=== PATIENT | female | born 1985 | race Caucasian/White ===

== ENCOUNTER 2016-12-06 08:21 | Day surgery (SDC) | payer MEDICARE ==
[2016-12-05 13:21] VITALS: BMI 26.9
[2016-12-06] MEDS ORDERED: Lidocaine 1% PF 5 ML VIAL ONE (09:41)
[2016-12-06 13:16] VITALS: BP 106/63; TEMP 98.6
--- NOTE | 2016-12-06 14:43 | ULT ---
THYROID ULTRASOUND: Date: 12/06/16 HISTORY: Dominant nodule in right thyroid lobe on recent CT. COMPARISON: None. FINDINGS: Thyroid isthmus measures 0.1 cm. Right thyroid lobe measures 1.8 x 4.7 x 2.1 cm. Left thyroid lobe measures 1.8 x 1.5 x 4.4 cm. With regard to the left thyroid lobe, there is mild heterogeneity. There is no evidence of a dominan t nodule. Calipers based on static images do not have a demonstrable nodule on real-time imaging. An echoic focus in left thyroid lobe is felt to represent a small incidental cystic lesion. There is a dominant solid or cystic nodule in the right thyroid lobe measuring 1.8 x 1.8 x 2.1 cm. T his nodule was deemed appropriate for fine needle aspiration. At total of four 25 gauge fine needle aspirations of a right thyroid lobe nodule performed. There we re no immediate postprocedure complications. TECHNIQUE: Consent obtained to perform an ultrasound guided fine needle aspiration of a right thyroid nodule. S kin was prepped and draped in the sterile fashion. 1% lidocaine, buffered with sodium bicarbonate, w as used for local anesthesia. Under ultrasound guidance, a total of four 25 gauge fine needle aspira tions were performed. The patient tolerated the procedure well. No immediate or postprocedure compli cation. IMPRESSION: Technically successful ultrasound guided fine needle aspiration. POS: [facility]
== END 2016-12-06 10:00 | disposition home or self-care (01) ==
LOC: ULT 08:21
PROVIDERS: ATTEND Otolaryngology Plastic Surgery within the Head & Neck
PROC: 0G9H3ZX Drainage of Right Thyroid Gland Lobe, Percutaneous Approach, Diagnostic (ICD-10-PCS; principal; 2016-12-06)
DX: E04.1 Nontoxic single thyroid nodule (principal); J45.909 Unspecified asthma, uncomplicated; E28.2 Polycystic ovarian syndrome; K21.9 Gastro-esophageal reflux disease without esophagitis; E66.9 Obesity, unspecified; Z68.27 Body mass index [BMI] 27.0-27.9, adult; Z88.8 Allergy status to other drugs, medicaments and biological substances; Z88.2 Allergy status to sulfonamides; Z88.1 Allergy status to other antibiotic agents
CPT/HCPCS: 10022; 76536; 76942; 88173; J2001

== ENCOUNTER 2017-03-18 11:08 | Outpatient (CLI) | payer OTHER | END 2017-03-18 11:09 | disposition home or self-care (01) | LOC: DTY/OP 11:08 | PROVIDERS: ATTEND Specialist | DX: Z01.818 Encounter for other preprocedural examination (principal); E66.01 Morbid (severe) obesity due to excess calories | CPT/HCPCS: 97802 ==

== ENCOUNTER 2017-05-23 10:00 | Inpatient (IN) | payer MEDICARE ==
[2017-05-23 10:37] VITALS: BMI 38.5
[2017-05-29] MEDS ORDERED: Bupivacaine/Epinephrine 0.25% 30 ML VIAL ONE (06:44)
[2017-05-29] MEDS ORDERED: cefOXitin 2 GM, Syringe 1 ML in Sterile Water 10 ML SLOW IVP SCH (06:45)
[2017-05-29] MEDS ORDERED: Heparin 5,000 UNITS/ML VIAL ONE (06:53)
[2017-05-29] MEDS ORDERED: Scopolamine 1.5 mg/72 hour Patch ONE (06:53)
[2017-05-29] MEDS ORDERED: Ketorolac Tromethamine 30 MG/ML VIAL ONE (06:53)
[2017-05-29] MEDS ORDERED: Midazolam HCl 2 mg/2 ml Vial ONE ×2 (06:54→07:08)
[2017-05-29] MEDS ORDERED: Fentanyl 100 MCG/2 ML VIAL ONE ×3 (06:54→10:25)
[2017-05-29] MEDS ORDERED: Ondansetron HCl/PF 4 MG/2 ML Vial ONE ×2 (06:55→16:44)
[2017-05-29] MEDS ORDERED: HYDROmorphone 0.5 MG/0.5 ML SYRINGE ONE (09:28)
[2017-05-29] MEDS ORDERED: Promethazine HCl 25 MG/ML VIAL IM PRN ×2 (09:32→11:03)
[2017-05-29] MEDS ORDERED: Ondansetron HCl/PF 4 MG/2 ML Vial IVP PRN ×2 (09:32→11:03)
[2017-05-29] MEDS ORDERED: Promethazine HCl 25 MG/ML VIAL SLOW IVP PRN (09:32)
[2017-05-29] MEDS ORDERED: Promethazine HCl 25 MG/ML VIAL ONE (10:51)
[2017-05-29] MEDS ORDERED: D5 1/2 NS w/20 mEq KCL 1,000 ML ONE (10:58)
[2017-05-29] MEDS ORDERED: hydrALAZINE 20 MG/ML VIAL SLOW IVP PRN (11:03)
[2017-05-29] MEDS ORDERED: Dextrose 50% Abboject 50 ML SYRINGE SLOW IVP PRN (11:03)
[2017-05-29] MEDS ORDERED: Hydrocodone-Acetamin 15 ML UDCUP PO PRN (11:03)
[2017-05-29] MEDS ORDERED: Dextrose 5% in Water 1,000 ML IV PRN (11:03)
[2017-05-29] MEDS ORDERED: diphenhydrAMINE 50 MG/ML VIAL IVP PRN (11:03)
[2017-05-29] MEDS ORDERED: Pantoprazole 40 MG VIAL IVP SCH (11:30)
[2017-05-29] MEDS: Ketorolac Tromethamine 30 MG/ML VIAL IVP SCH ×3 (12:24→23:10)
[2017-05-29] MEDS: Morphine 4 MG/ML VIAL SLOW IVP PRN ×5 (12:27→23:09)
[2017-05-29] MEDS: D5 1/2 NS w/20 mEq KCL 1,000 ML IV SCH ×2 (14:33→17:56)
[2017-05-29] MEDS ORDERED: Glycopyrrolate 0.2 MG/ML 5 ML SYRINGE ONE (16:44)
[2017-05-29] MEDS ORDERED: PROPOFOL 200 MG/20 ML VIAL ONE (16:44)
[2017-05-29] MEDS ORDERED: Lidocaine 1% PF 5 ML VIAL ONE (16:44)
[2017-05-29] MEDS ORDERED: Succinylcholine Chloride 20 MG/ML 10 ml SYRINGE FS ONE (16:44)
[2017-05-29] MEDS ORDERED: Enoxaparin Sodium 40 MG/0.4 ML SYRINGE SC SCH (21:00)
[2017-05-30] MEDS: D5 1/2 NS w/20 mEq KCL 1,000 ML IV SCH (03:00)
[2017-05-30] MEDS: Morphine 4 MG/ML VIAL SLOW IVP PRN (04:41)
[2017-05-30] MEDS: Ketorolac Tromethamine 30 MG/ML VIAL IVP SCH ×2 (05:25→12:13)
[2017-05-30 05:34] LABS: #Lymphocytes 1.5 thou/uL (1.20-3.40); #Monocytes 0.7 thou/uL (0.11-0.59); #Neutrophils 7.3 thou/uL (1.40-6.50); %Basophils 0.3 % (0.0-1.0); %Eosinophils 0.2 % (0.0-10.0); %Monocytes 7.5 % (0.0-10.0); %Neutrophils 75.9 % (42.0-75.0); Hemoglobin 11.1 g/dL (12.0-16.0); Mean Corpuscular HGB CONC 33.6 g/dL (32.0-36.0); Mean Corpuscular Hemoglobin 30.6 pg (27.0-31.0); Mean Platelet Volume 8.3 fL (7.4-10.4); Platelet Count 218 thou/uL (130-400); RBC Distribution Width 12.4 % (11.5-14.5); Red Blood Cell (RBC) Count 3.64 mill/uL (4.20-5.40); White Blood Cell (WBC) Count 9.6 thou/uL (4.8-10.8)
[2017-05-30 05:41] LABS: Anion Gap 7 mmol/L (10-20); BUN (Urea Nitrogen) 5 mg/dL (7.0-18.7); Calc. Creatinine Clearance 186 mL/min (70-130); Calcium 8.5 mg/dL (7.8-10.44); Carbon Dioxide 28 mmol/L (22-29); Chloride 106 mmol/L (98-107); Estimated GFR-MDRD Greater than 90; Glucose 129 mg/dL (70-105); Potassium 4.1 mmol/L (3.5-5.1); Sodium 137 mmol/L (136-145)
[2017-05-30] MEDS ORDERED: Pantoprazole 40 MG VIAL IVP SCH (09:00)
[2017-05-30 12:24] VITALS: BP 99/66; TEMP 98.2
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
== END 2017-05-30 13:15 | disposition home or self-care (01) | DRG 621 ==
LOC: SURG A 05-29 06:00 → SURG B 05-29 07:16
PROVIDERS: ADMIT Specialist; ATTEND Specialist
PROC: 0D164ZL Bypass Stomach to Transverse Colon, Percutaneous Endoscopic Approach (ICD-10-PCS; principal; 2017-05-29)
DX: E66.01 Morbid (severe) obesity due to excess calories (principal); E11.9 Type 2 diabetes mellitus without complications; Z68.41 Body mass index [BMI] 40.0-44.9, adult; K21.9 Gastro-esophageal reflux disease without esophagitis; Z87.820 Personal history of traumatic brain injury; Z79.84 Long term (current) use of oral hypoglycemic drugs
CPT/HCPCS: 36415; 80048; 85025; A4216; C9113; J0131; J0694; J1170; J1644; J1650; J1885; J2001; J2250; J2270; J2405; J2550; J2704; J3010

== ENCOUNTER 2017-05-23 10:10 | Outpatient (CLI) | payer MEDICARE ==
[2017-05-23 11:48] LABS: BHCG - Serum Negative (NEGATIVE); Pregs Control Background? CLEAR/WHITE (CLR/WHITE); Pregs Control Bar Appear? YES (CONTROL BAR)
== END 2017-05-23 10:11 | disposition home or self-care (01) ==
LOC: LABBT 10:10
PROVIDERS: ATTEND Specialist
DX: Z01.818 Encounter for other preprocedural examination (principal); E66.01 Morbid (severe) obesity due to excess calories; Z68.41 Body mass index [BMI] 40.0-44.9, adult
CPT/HCPCS: 84703

== ENCOUNTER 2017-06-02 09:06 | Inpatient (IN) | payer MEDICARE ==
[2017-06-02] MEDS ORDERED: Sodium Chloride 0.9% 100 ML ONE (09:35)
[2017-06-02] MEDS ORDERED: Piperacillin/Tazobactam 4.5 GM VIAL ONE (09:35)
[2017-06-02 09:47] LABS: #Lymphocytes 0.7 thou/uL (1.20-3.40); #Monocytes 0.3 thou/uL (0.11-0.59); %Basophils 0.1 % (0.0-1.0); %Eosinophils 0.2 % (0.0-10.0); %Lymphocytes 7.5 % (21.0-51.0); %Monocytes 3.8 % (0.0-10.0); %Neutrophils 88.5 % (42.0-75.0); Hemoglobin 12.5 g/dL (12.0-16.0); Mean Corpuscular HGB CONC 35.4 g/dL (32.0-36.0); Mean Corpuscular Hemoglobin 31.4 pg (27.0-31.0); Mean Corpuscular Volume 88.6 fl (81.0-99.0); Mean Platelet Volume 7.7 fL (7.4-10.4); Platelet Count 299 thou/uL (130-400); RBC Distribution Width 11.7 % (11.5-14.5); Red Blood Cell (RBC) Count 3.97 mill/uL (4.20-5.40)
[2017-06-02 10:12] LABS: ALT (SGPT) 82 U/L (8-55); AST (SGOT) 23 U/L (5-34); Albumin 4.1 g/dL (3.5-5.0); Alkaline Phosphatase 51 U/L (40-150); Anion Gap 15 mmol/L (10-20); BUN (Urea Nitrogen) 10 mg/dL (7.0-18.7); Bilirubin, Total 0.6 mg/dL (0.2-1.2); Calc. Creatinine Clearance 0 mL/min (70-130); Calcium 9.4 mg/dL (7.8-10.44); Carbon Dioxide 23 mmol/L (22-29); Chloride 101 mmol/L (98-107); Estimated GFR-MDRD Greater than 90; Globulin 3.3 g/dL (2.4-3.5); Glucose 114 mg/dL (70-105); Lipase 66 U/L (8-78); Potassium 3.3 mmol/L (3.5-5.1); Protein, Total 7.4 g/dL (6.0-8.3); Sodium 136 mmol/L (136-145)
--- NOTE | 2017-06-02 10:23 | RAD ---
PA AND LATERAL VIEWS CHEST: Date: 06/02/17 HISTORY: Cough and fever. Patient had bypass on 05/29/17. FINDINGS: The heart size is normal. There is a mild infiltrate in the left inferior lower lobe. No pneumothorac es are seen. A tiny left pleural effusion may be present. IMPRESSION: Possibility of left lower lobe pneumonia should be considered. POS: C
[2017-06-02 10:33] LABS: Bilirubin Small (Negative); Blood, Urine Negative (Negative); Clarity CLOUDY (Clear); Glucose, Urine (Dipstick) Negative (Negative); Leukocyte Negative (Negative); Nitrite Negative (Negative); Protein, Urine (Dipstick) Negative (Neg-Trace); Specific Gravity, Urine 1.021 (1.002-1.036); pH, Urine 5.5 (5.0-9.0)
[2017-06-02 10:35] LABS: Pregnancy Test - Urine (BHCG) Negative (Negative); Pregu Control Background? CLEAR/WHITE (CLR/WHITE); Pregu Control Bar Appear? YES (CONTROL BAR); Specific Gravity 1.021 (1.002-1.036)
[2017-06-02] MEDS ORDERED: Acetaminophen 1,000 MG in Premix Bag 1 BAG IVPB SCH (10:45)
--- NOTE | 2017-06-02 12:44 | CT ---
CT ABDOMEN AND PELVIS WITH IV CONTRAST: DATE: 06/02/17. HISTORY: Postoperative fever secondary to bariatric surgery. COMPARISON: None available. FINDINGS: There are postsurgical changes related to gastric bypass procedure. There is no extravasation of con trast seen at the gastroenteric anastomosis. No free intraperitoneal gas is visualized. No fluid co llection is seen to suggest an abscess. There are patchy airspace opacities at each lung base which may be related to atelectasis, although t here is a question of additional reticulonodular densities at the right lung base, and findings could be related to pneumonitis at each lung base. There is a tiny left pleural effusion present. While precontrast images were not obtained, there does appear to be mild diminished attenuation of th e liver relative to the spleen which is suggestive of fatty infiltration. The liver is otherwise nor mal in appearance. The spleen, pancreas, bilateral adrenal glands, kidneys, urinary bladder, uterus, and adnexal structu res have a normal CT appearance. There is a small amount of free fluid in the pelvis. The opacified proximal small bowel is normal in appearance. The remainder of the small bowel is also normal in caliber. The appendix is visualized and normal in caliber. Abdominal aorta is normal in appearance. Osseous structures are intact. IMPRESSION: 1. Tiny left pleural effusion with bibasilar ill-defined airspace opacities which may be attributabl e to atelectasis, but pneumonitis is a possibility. 2. Postsurgical changes related to gastric bypass procedure. There is no extravasation of contrast, and no free intraperitoneal gas or fluid collection is seen adjacent to the region of postsurgical c hange. 3. No evidence of a bowel obstruction. 4. Small amount of free fluid in the pelvis including the right paracolic gutter. 5. Mild fatty infiltration of the liver. 6. No CT evidence of appendicitis. POS: [facility]
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
[2017-06-02] MEDS ORDERED: Iopamidol 370 76% 50 ML VIAL FS ONE (14:34)
[2017-06-02] MEDS ORDERED: ISOVUE-370 76%-LOCM 1 ML ONE (14:34)
[2017-06-02] MEDS ORDERED: Morphine 4 MG/ML VIAL SLOW IVP PRN (15:00)
[2017-06-02] MEDS ORDERED: Ondansetron ODT 4 MG TAB PO PRN (15:00)
[2017-06-02] MEDS ORDERED: Dextrose 50% Abboject 50 ML SYRINGE SLOW IVP PRN (15:00)
[2017-06-02] MEDS ORDERED: Dextrose 5% in Water 1,000 ML IV PRN (15:00)
[2017-06-02] MEDS ORDERED: Polyethylene Glycol 3350 17 GM Packet PO SCH (15:15)
[2017-06-02] MEDS: D5 1/2 NS w/20 mEq KCL 1,000 ML IV SCH (16:04)
[2017-06-02 16:21] VITALS: BMI 37.5
[2017-06-02] MEDS: Fleet Enema 133 ML BOT PR SCH ×2 (17:03→21:58)
[2017-06-02] MEDS: Acetaminophen 1,000 MG in Premix Bag 1 BAG IVPB SCH ×2 (17:39→23:32)
[2017-06-02] MEDS: Ketorolac Tromethamine 30 MG/ML VIAL IVP SCH ×2 (17:39→23:32)
[2017-06-02] MEDS: Piperacillin/Tazobactam 3.375 GM in Sodium Chloride 0.9% 100 ML IVPB SCH ×2 (17:39→23:36)
[2017-06-02] MEDS ORDERED: Enoxaparin Sodium 40 MG/0.4 ML SYRINGE SC SCH (21:00)
[2017-06-02] MEDS: Famotidine 20 MG TAB PO SCH (21:58)
[2017-06-03] MEDS: Ketorolac Tromethamine 30 MG/ML VIAL IVP SCH (05:00)
[2017-06-03] MEDS: Acetaminophen 1,000 MG in Premix Bag 1 BAG IVPB SCH (05:02)
[2017-06-03] MEDS: D5 1/2 NS w/20 mEq KCL 1,000 ML IV SCH (05:06)
[2017-06-03] MEDS: Piperacillin/Tazobactam 3.375 GM in Sodium Chloride 0.9% 100 ML IVPB SCH (05:06)
[2017-06-03 05:35] LABS: #Eosinphils 0.1 thou/uL (0.0-0.7); #Lymphocytes 1.4 thou/uL (1.20-3.40); #Monocytes 0.4 thou/uL (0.11-0.59); #Neutrophils 4.7 thou/uL (1.40-6.50); %Basophils 0.3 % (0.0-1.0); %Eosinophils 2.1 % (0.0-10.0); %Lymphocytes 20.7 % (21.0-51.0); %Monocytes 6.6 % (0.0-10.0); %Neutrophils 70.3 % (42.0-75.0); Hemoglobin 10.2 g/dL (12.0-16.0); Mean Corpuscular HGB CONC 33.7 g/dL (32.0-36.0); Mean Corpuscular Hemoglobin 30.3 pg (27.0-31.0); Mean Corpuscular Volume 89.8 fl (81.0-99.0); Platelet Count 245 thou/uL (130-400); RBC Distribution Width 11.7 % (11.5-14.5); Red Blood Cell (RBC) Count 3.38 mill/uL (4.20-5.40); White Blood Cell (WBC) Count 6.7 thou/uL (4.8-10.8)
[2017-06-03 05:46] LABS: Anion Gap 10 mmol/L (10-20); BUN (Urea Nitrogen) 7 mg/dL (7.0-18.7); Calc. Creatinine Clearance 201 mL/min (70-130); Calcium 8.4 mg/dL (7.8-10.44); Carbon Dioxide 25 mmol/L (22-29); Chloride 107 mmol/L (98-107); Estimated GFR-MDRD Greater than 90; Glucose 100 mg/dL (70-105); Potassium 3.3 mmol/L (3.5-5.1); Sodium 139 mmol/L (136-145)
[2017-06-03 08:21] VITALS: BP 98/62; TEMP 97.9
[2017-06-03] MEDS: Famotidine 20 MG TAB PO SCH (08:39)
[2017-06-03] MEDS ORDERED: Polyethylene Glycol 3350 17 GM Packet PO SCH (09:00)
--- NOTE | 2017-06-03 11:06 | DPRG ---
DATE OF SERVICE: 06/03/2017 HISTORY: This is hospital day #2. Ms. Latham was admitted yesterday with a high fever and tachyca rdia. CT scan showed no evidence of intra-abdominal problem or leak. I suspected a pulmonary etiolo gy. She was admitted to the hospital and narcotics were avoided. She was given an enema and MiraLax and she had resumption of bowel function. She has had no nausea or vomiting since admission. She h as been afebrile since admission. She notes today that she has zero pain. She has been ambulating and tolerating her clear liquid diet uneventfully. PHYSICAL EXAMINATION: LUNGS: Her lungs are clear to auscultation. She has a good cough. ABDOMEN: Soft and nontender. Incisions are nicely healed. She has good bowel sounds. LABORATORY STUDIES: Her metabolic panel and CBC are essentially normal with normal white count, no e vidence of left shift. ASSESSMENT AND PLAN: The patient with resolved fever and tachycardia. I suspect that this was relat ed to atelectasis. It was associated with bowel distention secondary to some degree of ileus related to narcotic use. All these problems seemed to have resolved and she feels well today. I believe melina whittaker is stable for discharge home on her liquid diet. She is instructed to avoid narcotics. I will see her next week for her usual followup visit 2 weeks out from surgery.
== END 2017-06-03 11:19 | disposition home or self-care (01) | DRG 389 ==
LOC: ERS 09:06 → SURG A 15:06
PROVIDERS: ADMIT Specialist; ATTEND Specialist
DX: K56.7 Ileus, unspecified (principal); J98.11 Atelectasis; E66.9 Obesity, unspecified; R50.9 Fever, unspecified; Z98.84 Bariatric surgery status; K21.9 Gastro-esophageal reflux disease without esophagitis; Z68.37 Body mass index [BMI] 37.0-37.9, adult; Z87.820 Personal history of traumatic brain injury; Z88.2 Allergy status to sulfonamides; T40.605A Adverse effect of unspecified narcotics, initial encounter
CPT/HCPCS: 36415; 71046; 74177; 80048; 80053; 81003; 81025; 83605; 83690; 85025; 87040; 87086; 93005; 96361; 96365; 96367; J0131; J1650; J1885; J2543; J3411; J7050

== ENCOUNTER 2018-03-28 18:58 | Emergency (ER) | payer MEDICARE ==
[2018-03-28 19:39] LABS: Bilirubin Negative (Negative); Blood, Urine Negative (Negative); Clarity CLEAR (Clear); Glucose, Urine (Dipstick) Negative (Negative); Leukocyte Large (Negative); Nitrite Negative (Negative); Protein, Urine (Dipstick) Negative (Neg-Trace); Specific Gravity, Urine 1.017 (1.002-1.036)
[2018-03-28 19:41] LABS: Bacteria/HPF None Seen HPF (None Seen); Hyaline Casts/LPF 0-3 HYALINE CAST LPF (0-3 Hyaline); Pregnancy Test - Urine (BHCG) Negative (Negative); Pregu Control Background? CLEAR/WHITE (CLR/WHITE); Pregu Control Bar Appear? YES (CONTROL BAR); Specific Gravity 1.017 (1.002-1.036); Squamous Epithelial 0-3 HPF (0-3)
[2018-03-28 19:42] LABS: RBC/HPF None Seen HPF (0-3)
[2018-03-28 19:53] LABS: #Basophils 0.1 thou/uL (0.0-0.2); #Eosinphils 0.1 thou/uL (0.0-0.7); #Lymphocytes 2.9 thou/uL (1.20-3.40); #Monocytes 0.3 thou/uL (0.11-0.59); #Neutrophils 4.1 thou/uL (1.40-6.50); %Basophils 1.5 % (0.0-1.0); %Eosinophils 1.5 % (0.0-10.0); %Lymphocytes 38.4 % (21.0-51.0); %Monocytes 4.5 % (0.0-10.0); %Neutrophils 54.1 % (42.0-75.0); Hemoglobin 12.9 g/dL (12.0-16.0); Mean Corpuscular HGB CONC 33.8 g/dL (32.0-36.0); Mean Corpuscular Hemoglobin 31.5 pg (27.0-31.0); Mean Corpuscular Volume 93.3 fL (78.0-98.0); Mean Platelet Volume 7.5 fL (7.4-10.4); Platelet Count 257 thou/uL (130-400); RBC Distribution Width 11.7 % (11.5-14.5); Red Blood Cell (RBC) Count 4.09 mill/uL (4.20-5.40); White Blood Cell (WBC) Count 7.5 thou/uL (4.8-10.8)
[2018-03-28 20:14] LABS: ALT (SGPT) 33 U/L (8-55); AST (SGOT) 24 U/L (5-34); Albumin 4.4 g/dL (3.5-5.0); Alkaline Phosphatase 53 U/L (40-150); Anion Gap 12 mmol/L (10-20); BUN (Urea Nitrogen) 11 mg/dL (7.0-18.7); Bilirubin, Total 0.3 mg/dL (0.2-1.2); Calc. Creatinine Clearance 0 mL/min (70-130); Calcium 9.6 mg/dL (7.8-10.44); Carbon Dioxide 28 mmol/L (22-29); Chloride 103 mmol/L (98-107); Estimated GFR-MDRD Greater than 90; Glucose 118 mg/dL (70-105); Potassium 3.8 mmol/L (3.5-5.1); Protein, Total 7.4 g/dL (6.0-8.3); Sodium 139 mmol/L (136-145)
== END 2018-03-28 21:19 | disposition home or self-care (01) ==
LOC: ERS 18:58
DX: N30.00 Acute cystitis without hematuria (principal)
CPT/HCPCS: 36415; 80053; 81003; 81015; 81025; 83690; 85025; 99284

== ENCOUNTER 2018-07-17 19:37 | Emergency (ER) | payer MEDICARE, MEDICAID ==
[2018-07-17 22:06] LABS: Bilirubin Negative (Negative); Blood, Urine Negative (Negative); Clarity CLEAR (Clear); Glucose, Urine (Dipstick) Negative (Negative); Leukocyte Trace (Negative); Nitrite Negative (Negative); Protein, Urine (Dipstick) Negative (Neg-Trace); Urobilinogen 0.2 mg/dL (0.2-1.0)
[2018-07-17 22:09] LABS: Pregnancy Test - Urine (BHCG) POSITIVE (Negative); Pregu Control Background? CLEAR/WHITE (CLR/WHITE); Pregu Control Bar Appear? YES (CONTROL BAR)
[2018-07-17 22:12] LABS: Bacteria/HPF None Seen HPF (None Seen); Hyaline Casts/LPF 0-3 HYALINE CAST LPF (0-3 Hyaline); Pathc Cast-AUWi Flag 0.13 (0-2.49); RBC/HPF 0-3 HPF (0-3); Squamous Epithelial 0-3 HPF (0-3); WBC/HPF 0-3 HPF (0-3)
[2018-07-19 23:18] LABS: Chlamydia by PCR Not Detected (NotDetected); GC by PCR Not Detected (NotDetected)
== END 2018-07-17 23:40 | disposition home or self-care (01) ==
LOC: ERS 19:37
DX: O99.89 Other specified diseases and conditions complicating pregnancy, childbirth and the puerperium (principal); L29.9 Pruritus, unspecified; Z3A.19 19 weeks gestation of pregnancy
CPT/HCPCS: 81003; 81015; 81025; 87480; 87491; 87510; 87591; 87660

== ENCOUNTER 2018-08-04 19:24 | Day surgery (SDC) | payer MEDICARE, MEDICAID ==
[2018-08-04 20:11] VITALS: BMI 26.3
[2018-08-04] MEDS ORDERED: hydrALAZINE 20 MG/ML VIAL SLOW IVP PRN (20:30)
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
== END 2018-08-04 20:40 | disposition home or self-care (01) ==
LOC: L&D/OP 19:24
PROVIDERS: ATTEND Obstetrics & Gynecology
DX: O36.8120 Decreased fetal movements, second trimester, not applicable or unspecified (principal); Z3A.21 21 weeks gestation of pregnancy; Z98.84 Bariatric surgery status; Z88.2 Allergy status to sulfonamides; Z88.1 Allergy status to other antibiotic agents; Z88.8 Allergy status to other drugs, medicaments and biological substances
CPT/HCPCS: 99282

== ENCOUNTER 2018-11-29 17:35 | Day surgery (SDC) | payer MEDICARE, MEDICAID ==
[2018-11-29 18:25] VITALS: BP 108/62; TEMP 98.1; BMI 29.0
[2018-11-29] MEDS ORDERED: hydrALAZINE 20 MG/ML VIAL SLOW IVP PRN (18:35)
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
[2018-11-29] MEDS ORDERED: FLU VACC QS2019-20(6MOS UP)/PF 60 MCG/0.5 ML SYRINGE IM ONE (20:00)
== END 2018-11-29 19:00 | disposition home or self-care (01) ==
LOC: L&D/OP 17:35
PROVIDERS: ATTEND Obstetrics & Gynecology
DX: O36.8130 Decreased fetal movements, third trimester, not applicable or unspecified (principal); O99.513 Diseases of the respiratory system complicating pregnancy, third trimester; J45.909 Unspecified asthma, uncomplicated; Z3A.38 38 weeks gestation of pregnancy; Z88.2 Allergy status to sulfonamides; Z88.8 Allergy status to other drugs, medicaments and biological substances

== ENCOUNTER 2018-12-07 16:22 | Inpatient (IN) | payer MEDICARE, MEDICAID ==
[2018-12-07] MEDS: Lactated Ringer's 1,000 ML IV SCH ×2 (17:00→19:36)
[2018-12-07] MEDS ORDERED: Ibuprofen 800 MG TAB PO PRN (17:13)
[2018-12-07] MEDS ORDERED: Zolpidem Tartrate 5 MG TAB PO PRN (17:13)
[2018-12-07] MEDS ORDERED: Docusate 100 MG CAP PO PRN (17:13)
[2018-12-07] MEDS ORDERED: hydrALAZINE 20 MG/ML VIAL SLOW IVP PRN ×2 (17:13→23:00)
[2018-12-07] MEDS ORDERED: Lidocaine 1% (PF) 30 ML VIAL SC PRN (17:13)
[2018-12-07] MEDS ORDERED: Butorphanol Tartrate 1 MG/ML VIAL SLOW IVP PRN (17:13)
[2018-12-07] MEDS ORDERED: Ondansetron PF 4 MG/2 ML Vial IVP PRN ×3 (17:13→23:00)
[2018-12-07] MEDS ORDERED: NS / Oxytocin 40 units/1000ml 1,000 ML IV PRN (17:13)
[2018-12-07] MEDS ORDERED: HYDROcodone/Acetaminophen 5/325 mg Tablet PO PRN ×2 (17:13)
[2018-12-07] MEDS ORDERED: Promethazine HCl 25 MG/ML VIAL IM PRN ×2 (17:13→19:37)
[2018-12-07] MEDS ORDERED: NS w/ Oxytocin 10 units 500 ML IV SCH (17:15)
[2018-12-07 17:19] VITALS: BMI 29.2
[2018-12-07 17:35] LABS: Hemoglobin 10.6 g/dL (12.0-16.0); Mean Corpuscular HGB CONC 33.2 g/dL (32.0-36.0); Mean Corpuscular Hemoglobin 29.8 pg (27.0-31.0); Mean Corpuscular Volume 89.9 fL (78.0-98.0); Mean Platelet Volume 7.3 fL (7.4-10.4); Platelet Count 270 thou/uL (130-400); RBC Distribution Width 12.8 % (11.5-14.5); Red Blood Cell (RBC) Count 3.56 mill/uL (4.20-5.40); White Blood Cell (WBC) Count 7.5 thou/uL (4.8-10.8)
[2018-12-07 18:12] LABS: HBSAg Index 0.14 S/CO (0-0.99); Hep B Surf Ag Non-Reactive S/CO (NonReactive); Syphilis Antibody Nonreactive (Nonreactive); Syphilis Antibody Index 0.05 S/CO (<1.00 Non-Reactive)
[2018-12-07] MEDS ORDERED: Fentanyl 4 mcg/Bup 0.1% Cadd 100 ML ONE (19:08)
[2018-12-07] MEDS ORDERED: ePHEDrine/0.9% NaCl/PF SYRINGE 50 mg/10 ml SLOW IVP PRN (19:37)
[2018-12-07] MEDS ORDERED: Naloxone HCl 0.4 mg/ml Vial IVP PRN ×2 (19:37)
[2018-12-07] MEDS ORDERED: diphenhydrAMINE 50 MG/ML VIAL IVP PRN (19:37)
[2018-12-07] MEDS ORDERED: Lactated Ringer's 500 ML IV PRN (19:37)
[2018-12-07] MEDS ORDERED: Acetaminophen 325 MG TAB PO PRN (19:37)
[2018-12-07] MEDS ORDERED: Fentanyl 4 mcg/Bupivacaine 0.1% Cassette 100 ML EPIDURAL SCH (19:45)
[2018-12-07] MEDS ORDERED: Communication Order-Pharmacy FS SCH (19:45)
[2018-12-07] MEDS ORDERED: Lidocaine 1% (PF) 30 ML VIAL ONE (20:48)
[2018-12-07] MEDS ORDERED: NS / Oxytocin 40 units/1000ml 1,000 ML ONE (20:48)
[2018-12-07] MEDS: NS / Oxytocin 40 units/1000ml 1,000 ML IV SCH (22:21)
[2018-12-07] MEDS ORDERED: Milk Of Magnesia 30 ML UDCUP PO PRN (23:00)
[2018-12-07] MEDS ORDERED: Bisacodyl 10 MG SUPP PR PRN (23:00)
[2018-12-07] MEDS ORDERED: Lanolin Ointment 7 GM TUBE TOP PRN (23:00)
[2018-12-07] MEDS ORDERED: Preparation H Ointment 28 GM TUBE PR PRN (23:00)
[2018-12-07] MEDS ORDERED: Benzocaine-Menthol 82.5 ML CAN TOP PRN (23:00)
[2018-12-08] MEDS: NS / Oxytocin 40 units/1000ml 1,000 ML IV SCH (02:05)
[2018-12-08] MEDS: HYDROcodone/Acetaminophen 5/325 mg Tablet PO PRN ×4 (03:12→22:46)
[2018-12-08] MEDS: Ibuprofen 800 MG TAB PO SCH ×3 (05:04→21:35)
[2018-12-08] MEDS ORDERED: Adacel (T-DAP) 0.5 ML SYRINGE IM ONE (09:00)
[2018-12-08] MEDS: Prenatal Vitamin 1 TAB PO SCH (09:13)
[2018-12-08] MEDS: Docusate Calcium (SURFAK) 240 MG CAP PO SCH ×2 (09:13→21:35)
[2018-12-08] MEDS: Ferrous Sulfate 325 MG TAB PO SCH ×2 (09:13→17:45)
[2018-12-08] MEDS: Lactated Ringer's 1,000 ML IV SCH ×2 (11:33→18:53)
[2018-12-09] MEDS: Lactated Ringer's 1,000 ML IV SCH ×2 (03:17→10:20)
[2018-12-09] MEDS: Ibuprofen 800 MG TAB PO SCH ×2 (06:14→14:48)
[2018-12-09] MEDS: Docusate Calcium (SURFAK) 240 MG CAP PO SCH (09:41)
[2018-12-09] MEDS: Ferrous Sulfate 325 MG TAB PO SCH (10:19)
[2018-12-09] MEDS: Prenatal Vitamin 1 TAB PO SCH (10:20)
[2018-12-09] MEDS: HYDROcodone/Acetaminophen 5/325 mg Tablet PO PRN (13:19)
[2018-12-09 17:42] VITALS: BP 115/68; TEMP 98.8
--- NOTE | 2018-12-09 22:36 | DN ---
DATE OF PROCEDURE: 12/07/2018 PREOPERATIVE DIAGNOSES: 1. A 33-year-old G3, P2, with a history of a previous section, in active labor. 2. Group B Streptococcus negative. 3. Artificial rupture of membranes for clear fluid. 4. History of gastric bypass with subsequent anemia of due to malabsorption. 5. Depression and anxiety. POSTOPERATIVE DIAGNOSES: 1. A 33-year-old G3, P2, with a history of a previous section, in active labor. 2. Group B Streptococcus negative. 3. Artificial rupture of membranes for clear fluid. 4. History of gastric bypass with subsequent anemia of due to malabsorption. 5. Depression and anxiety. 6. Live-born male infant with Apgars of 9 and 9 at 1 and 5 minutes respectively. 7. Nuchal cord in delivery reduced. 8. Non-reassuring heart tracing and asynclitic presentation at the perineum. PROCEDURE PERFORMED: Vacuum-assisted vaginal delivery. QUANTITATIVE BLOOD LOSS: 100 mL. CLINICAL HISTORY: This patient is a 33-year-old female, who presented to her routine OB appointment and was noted to be in active labor. She was 4 cm, and 80% effaced and feeling pressure. She was sent to Labor and Delivery and placed on the monitors and had a category 1 tracing. An amniotomy was performed for clear fluid. Shortly thereafter, she did request an epidural for maternal analgesia and was able to get adequate pain control. She progressed appropriately on the labor curve, and was complete and +1 station. By the early afternoon, the patient was able to push with good maternal effort; however the trajectory of the fetus delivering in the canal was toward the pubic bone rather than down to the base of the perineum. The patient employed several methods to push and was successful in getting the fetus under the pubic bone; however, the baby was starting to notice some swelling and some caput on the head and the tracing was reflecting compression of the cord as well as the not tolerating this trajectory. The risks, benefits, and possible complications as well as alternatives to vacuum-assisted delivery were discussed and the patient wished to proceed. DESCRIPTION OF PROCEDURE: The suction cup was placed over the presenting vertex after draining the bladder with a red rubber catheter. Only 25 mL of clear urine were obtained. After the cup was placed on the head of the fetus, the borders were swept to make sure that there was no other tissue maternal calix in the cup. The suction was turned to the green zone and with the next contraction, the mother was advised to push and the vertex was pulled in a downward manner. This allowed for further delivery of the head. With the second pull, the head delivered, followed by the anterior shoulder, then the posterior shoulder, then the remainder of the 's body. There was a nuchal cord that was noted and it was successfully reduced at the perineum prior to delivery of the remainder of the body. The infant was stimulated and cried spontaneously. The cord was doubly clamped and cut. There was some suction of the mouth and nose at the perineum. The infant was then placed onto the abdomen and then with continued stimulation and care there. The patient was explored and noted to have only a left labial laceration, which was not bleeding; however, was for cosmetic reasons, repaired, it was considered a first degree. The placenta was delivered spontaneously intact with a 3-vessel cord and fundus massaged, noted as a firm uterus. Exploration of the vagina, introitus, and the cervix revealed nothing more afterwards. The patient was allowed to recover on Labor and Delivery in satisfactory condition with her infant. Again, the was a live born male, weighing 7 pounds 6 ounces with Apgars of 9 and 9 at 1 and 5 minutes respectively. There were no other issues surrounding this delivery. All needle, sponge, lap, and instrument counts were correct x2 at the end of the procedure. Job ID: [id number]
== END 2018-12-09 18:30 | disposition home or self-care (01) | DRG 807 ==
LOC: L&D 16:22 → 3SE 12-08 03:03
PROVIDERS: ADMIT Obstetrics & Gynecology; ATTEND Obstetrics & Gynecology
PROC: 10D07Z6 Extraction of Products of Conception, Vacuum, Via Natural or Artificial Opening (ICD-10-PCS; principal; 2018-12-07)
PROC: 0HQ9XZZ Repair Perineum Skin, External Approach (ICD-10-PCS; 2018-12-07)
PROC: 10907ZC Drainage of Amniotic Fluid, Therapeutic from Products of Conception, Via Natural or Artificial Opening (ICD-10-PCS; 2018-12-07)
DX: O99.344 Other mental disorders complicating childbirth (principal); Z37.0 Single live birth; F32.9 Major depressive disorder, single episode, unspecified; F41.9 Anxiety disorder, unspecified; O76 Abnormality in fetal heart rate and rhythm complicating labor and delivery; O69.81X0 Labor and delivery complicated by cord around neck, without compression, not applicable or unspecified; O99.02 Anemia complicating childbirth; O70.0 First degree perineal laceration during delivery; Z3A.39 39 weeks gestation of pregnancy
CPT/HCPCS: 36415; 51702; 85027; 86780; 86850; 86900; 86901; 87340; J2001; J2590

== ENCOUNTER 2019-07-23 11:00 | Outpatient (CLI) | payer MEDICARE ==
--- NOTE | 2019-07-23 16:12 | ULT ---
THYROID ULTRASOUND: Comparison: 12-06-16 Technique: Multiplanar grayscale and color doppler images were obtained in a thyroid ultrasound. FINDINGS: There is a solid nodule again seen in the right lobe of the thyroid. This is the nodule for which yamila or biopsy was performed. This nodule was circumscribed and isoechoic to the back on thyroid parenchym a. This measures 3.3 cm in greatest dimension. This is not connected to suspicious calcifications and is wider than it is tall. Cysts are seen in the left thyroid lobe. The thyroid lobes measure 5.5 and 4.6 cm in length on the right and left respectively. IMPRESSION: Solid right thyroid nodule. This lesion is a TIRADS category III lesion. An FNA is recommended, but a n FNA was already performed of this nodule. This nodule appears to have enlarged compared to the prio r examination. If additional tissue sampling is desired, then a core biopsy of this nodule is recomme nded. POS: JUDY
== END 2019-07-23 11:01 | disposition home or self-care (01) ==
LOC: SCSULT 11:00
PROVIDERS: ATTEND Family Medicine
DX: E04.1 Nontoxic single thyroid nodule (principal)
CPT/HCPCS: 76536

== ENCOUNTER 2019-08-16 08:57 | Outpatient (CLI) | payer MEDICARE, OTHER ==
[2019-08-17 13:11] LABS: SARS-CoV-2 MS2 Positive; SARS-CoV-2 N Gene Negative; SARS-CoV-2 S Gene Negative; SARS-CoV-2 orf1ab Negative
== END 2019-08-16 08:58 | disposition home or self-care (01) ==
LOC: LABSCS 08:57
PROVIDERS: ATTEND Otolaryngology Plastic Surgery within the Head & Neck
DX: Z11.59 Encounter for screening for other viral diseases (principal)
CPT/HCPCS: 36415; 84439; 84443; 84481; 86376; 86800; 87635; U0003

== ENCOUNTER 2020-06-02 00:21 | Emergency (ER) | payer MEDICARE, MEDICAID ==
[2020-06-02] MEDS ORDERED: Ondansetron PF 4 MG/2 ML Vial ONE (01:06)
[2020-06-02] MEDS ORDERED: Morphine 4 MG/ML VIAL ONE (01:06)
[2020-06-02 01:53] LABS: #Basophils 0.1 thou/uL (0.0-0.2); #Eosinphils 0.1 thou/uL (0.0-0.7); #Lymphocytes 1.4 thou/uL (1.20-3.40); #Monocytes 0.4 thou/uL (0.11-0.59); #Neutrophils 7.2 thou/uL (1.40-6.50); %Basophils 0.7 % (0.0-1.0); %Eosinophils 0.8 % (0.0-10.0); %Lymphocytes 15.4 % (21.0-51.0); %Neutrophils 79.1 % (42.0-75.0); Hemoglobin 11.4 g/dL (12.0-16.0); Mean Corpuscular HGB CONC 33.5 g/dL (32.0-36.0); Mean Corpuscular Hemoglobin 28.4 pg (27.0-31.0); Mean Corpuscular Volume 84.8 fL (78.0-98.0); Platelet Count 286 thou/uL (130-400); RBC Distribution Width 11.7 % (11.5-14.5); White Blood Cell (WBC) Count 9.2 thou/uL (4.8-10.8)
[2020-06-02 02:19] LABS: ALT (SGPT) 26 U/L (8-55); AST (SGOT) 29 U/L (5-34); Albumin 4.3 g/dL (3.5-5.0); Anion Gap 12 mmol/L (10-20); BUN (Urea Nitrogen) 14 mg/dL (7.0-18.7); Bilirubin, Total Less than 0.2 mg/dL (0.2-1.2); Calc. Creatinine Clearance 0 mL/min (70-130); Calcium 9.1 mg/dL (7.8-10.44); Carbon Dioxide 28 mmol/L (22-29); Chloride 103 mmol/L (98-107); Globulin 3.7 g/dL (2.4-3.5); Glucose 127 mg/dL (70-105); Lipase 39 U/L (8-78); Sodium 139 mmol/L (136-145)
[2020-06-02 02:25] LABS: Alkaline Phosphatase 77 U/L (40-110)
== END 2020-06-02 03:08 | disposition home or self-care (01) ==
LOC: ERS 00:21
DX: R10.11 Right upper quadrant pain (principal); R11.2 Nausea with vomiting, unspecified
CPT/HCPCS: 80053; 83690; 85025; 96374; 96375; J2270; J2405

== ENCOUNTER 2020-09-01 13:10 | Outpatient (CLI) | payer MEDICAID ==
[2020-09-01 15:02] LABS: BHCG - Serum Negative (NEGATIVE); Pregs Control Background? CLEAR/WHITE (CLR/WHITE); Pregs Control Bar Appear? YES (CONTROL BAR)
[2020-09-02 14:40] LABS: SARS-CoV-2 PCR by NAA Not Detected (NotDetected)
== END 2020-09-01 13:11 | disposition home or self-care (01) ==
LOC: LABBT 13:10
PROVIDERS: ATTEND Otolaryngology Plastic Surgery within the Head & Neck
DX: Z01.812 Encounter for preprocedural laboratory examination (principal); E04.1 Nontoxic single thyroid nodule; Z20.822 Contact with and (suspected) exposure to COVID-19
CPT/HCPCS: 84703; 85014; U0003; U0005